=== PATIENT | male | born 1930 | race Caucasian/White ===

== ENCOUNTER 2017-06-06 09:39 | Emergency (ER) | payer OTHER ==
[~2017-06-06 09:39] MED LIST: ACYC1CAP16 PO; ALLOPOW4 PO; ANAG0.5C PO; CHOL100010 PO; CIPR1TAB50 PO; FLUC100T2 PO; LEVO125T3 PO; LEVO500T3 PO; VIT250TA PO
[2017-06-06] MEDS ORDERED: CHOL5000 PO (09:54)
[2017-06-06] MEDS ORDERED: [UNRECOGNIZED DRUG - CODE] (09:54)
[2017-06-06] MEDS ORDERED: LEVO125T4 PO (09:54)
[2017-06-06 09:56] VITALS: BP 105/57; PULSE 92; RESP 18; TEMP 98.4; O2SAT 95
[2017-06-06] MEDS ORDERED: SODIUM CHLOR 0.9% 1000 ML INJ 1,000 ML IV ONE (10:15)
--- NOTE | 2017-06-06 10:18 | PD ---
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 Since that time he's not been the same. He's had some generalized weakness and felt lightheaded. This morning it was worse. His checked his blood pressure and reportedly was in the 60s systolic. At this time his blood pressure is 105 systolic and he feels improved. Symptoms severity was moderate. No syncope or chest pain. No alleviating factors. He has not had any fever PFSH Past Medical History Cancer: Yes (NHL, LUNG CANCER; SQUAMOUS CELL RIGHT EAR) Chemotherapy: Yes Thyroid Disease: Yes Influenza Vaccination: No Past Surgical History Pacemaker: No Thoracic Surgery: Yes (PARTIAL LOBECTOMY RIGHT LOWER LOBE) Other Surgery: Yes Social History Alcohol Use: No Tobacco Use: No Substance Use: No Allergies-Medications (Allergen,Severity, Reaction): Coded Allergies: clarithromycin (Unverified Allergy, Intermediate, HYPERACTIVE, 06/06/17) Reported Meds & Prescriptions Reported Meds & Active Scripts Active Reported Vitamin D3 (Cholecalciferol) 5,000 Unit Cap 5,000 Units PO DAILY Erbitux Inj (Cetuximab) 100 Mg/50 Ml Inj Levothyroxine (Levothyroxine Sodium) 125 Mcg Tab 125 Mcg PO DAILY Review of Systems General / Constitutional: No: Fever Eyes: No: Visual changes HENT: Positive: Lightheadedness, No: Headaches Cardiovascular: No: Chest Pain or Discomfort Respiratory: No: Shortness of Breath Gastrointestinal: No: Abdominal Pain Genitourinary: No: Dysuria Musculoskeletal: Positive: Weakness, No: Pain Skin: No Rash Neurologic: Positive: Weakness, Dizziness Psychiatric: No: Depression Endocrine: No: Polydipsia Hematologic/Lymphatic: No: Easy Bruising Physical Exam Narrative GENERAL: Well-nourished, well-developed patient in no apparent distress. SKIN: Focused skin assessment reveals no rash and nodules. Skin is Warm and dry. HEAD: Atraumatic. Normocephalic. EYES: Pupils equal and round. No scleral icterus. No injection or drainage. ENT: No nasal bleeding or discharge. Mucous membranes pink and moist. Facial exam reveals that there is discoloration nodularity to the right side of the face where his cancer is. No surrounding erythema or warmth or fluctuance or active drainage NECK: Trachea midline. No JVD. CARDIOVASCULAR: Regular rate and rhythm. No murmur appreciated. RESPIRATORY: No accessory muscle use. Clear to auscultation. Breath sounds equal bilaterally. GASTROINTESTINAL: Abdomen soft, non-tender, nondistended. Hepatic and splenic margins not palpable. MUSCULOSKELETAL: No obvious deformities. No clubbing. No cyanosis. No edema. NEUROLOGICAL: Awake and alert. No obvious cranial nerve deficits. Motor grossly within normal limits. Normal speech. PSYCHIATRIC: Appropriate mood and affect; insight and judgment normal. Data Data Last Documented VS Vital Signs Date Time Temp Pulse Resp B/P (MAP) Pulse Ox O2 Delivery O2 Flow Rate FiO2 06/06/17 11:09 80 16 123/62 (82) 95 Room Air 06/06/17 09:56 98.4 Orders Orders Iv Access Insert/Monitor (06/06/17 10:14) Sodium Chlor 0.9% 1000 Ml Inj (Ns 1000 M (06/06/17 10:15) Complete Blood Count With Diff (06/06/17 10:14) Basic Metabolic Panel (Bmp) (06/06/17 10:14) Labs Laboratory Tests Test 06/06/17 10:30 White Blood Count 16.3 TH/MM3 Red Blood Count 2.91 MIL/MM3 Hemoglobin 9.1 GM/DL Hematocrit 27.4 % Mean Corpuscular Volume 94.3 FL Mean Corpuscular Hemoglobin 31.2 PG Mean Corpuscular Hemoglobin Concent 33.1 % Red Cell Distribution Width 20.4 % Platelet Count 465 TH/MM3 Mean Platelet Volume 7.0 FL Neutrophils (%) (Auto) 73.9 % Lymphocytes (%) (Auto) 10.3 % Monocytes (%) (Auto) 12.6 % Eosinophils (%) (Auto) 1.1 % Basophils (%) (Auto) 2.1 % Neutrophils # (Auto) 12.0 TH/MM3 Lymphocytes # (Auto) 1.7 TH/MM3 Monocytes # (Auto) 2.1 TH/MM3 Eosinophils # (Auto) 0.2 TH/MM3 Basophils # (Auto) 0.3 TH/MM3 CBC Comment AUTO DIFF Differential Total Cells Counted 100 Neutrophils % (Manual) 45 % Band Neutrophils % 14 % Lymphocytes % 11 % Monocytes % 11 % Basophils % 2 % Neutrophils # (Manual) 12.4 TH/MM3 Metamyelocytes 9 % Myelocytes 7 % Promyelocytes 1 % Nucleated Red Blood Cells 4 /100 WBC Differential Comment FINAL DIFF MANUAL Platelet Estimate NORMAL Platelet Morphology Comment NORMAL Ovalocytes 1+ Keratocytes OCC Blood Urea Nitrogen 17 MG/DL Creatinine 0.89 MG/DL Random Glucose 95 MG/DL Calcium Level 7.7 MG/DL Sodium Level 137 MEQ/L Potassium Level 3.7 MEQ/L Chloride Level 102 MEQ/L Carbon Dioxide Level 26.5 MEQ/L Anion Gap 9 MEQ/L Estimat Glomerular Filtration Rate 81 ML/MIN MDM Medical Decision Making Medical Screen Exam Complete: Yes Emergency Medical Condition: Yes Medical Record Reviewed: Yes Differential Diagnosis Dehydration, chemotherapy side effect, vasovagal episode, orthostatic hypotension Narrative Course I have reviewed the patient's electronic medical record. His oncologist note from 6 weeks ago detailing his complicated history of multiple cancers Patient is currently getting chemotherapy. IV placed I gave him 1 L normal saline IV Initial heart rate is 90 and blood pressure 105 systolic CBC shows some nonspecific leukocytosis and anemia Metabolic profile is normal After hydration blood pressure is 125 systolic and he is feeling much better Stable for outpatient follow-up Diagnosis Primary Impression: Hypotension arterial Qualified Codes: I95.9 - Hypotension, unspecified Additional Impression: Lightheadedness Additional Instructions: The patient was advised to follow up with their physician and return if they worsen. Med/Other Pt SpecificInfo: Other Disposition: 01 DISCHARGE HOME Condition: Stable Gordo Mason MD Jun 06, 2017 10:18
[2017-06-06 10:39] LABS: BASOPHIL # 0.3 TH/MM3 (0-0.2); BASOPHIL % 2.1 % (0.0-2.0); EOSINOPHIL # 0.2 TH/MM3 (0-0.4); EOSINOPHIL % 1.1 % (0.0-4.0); HEMATOCRIT 27.4 % (39.0-51.0); LYMPH % 10.3 % (9.0-44.0); LYMPHOCYTE # 1.7 TH/MM3 (1.0-4.8); MEAN CELL VOLUME 94.3 FL (80.0-100.0); MEAN CORPUSCULAR HEMOGLOBIN 31.2 PG (27.0-34.0); MEAN CORPUSCULAR HGB CONC 33.1 % (32.0-36.0); MONO % 12.6 % (0.0-8.0); NEUT % 73.9 % (16.0-70.0); PLATELET COUNT 465 TH/MM3 (150-450); RED BLOOD COUNT 2.91 MIL/MM3 (4.50-5.90); RED CELL DISTRIBUTION WIDTH 20.4 % (11.6-17.2); WHITE BLOOD COUNT 16.3 TH/MM3 (4.0-11.0)
[2017-06-06 10:41] LABS: HEMO FLAGS AUTO DIFF
[2017-06-06 10:47] LABS: POTASSIUM 3.7 MEQ/L (3.5-5.1)
[2017-06-06 10:50] LABS: BICARBONATE 26.5 MEQ/L (21.0-32.0)
[2017-06-06 11:07] LABS: BANDS 14 % (0-6); BASOPHILS 2 % (0-2); CORRECTED NUCLEATED RBC 4 /100 WBC (0-0); METAMYELOCYTES 9 % (0-1); MYELOCYTES 7 % (0-0); NEUTROPHIL # MANUAL DIFF 12.4 TH/MM3 (1.8-7.7); POLYS (SEG NEUTROPHILS) 45 % (16-70); PROMYELOCYTES 1 % (0-0); WBC DIFF SAMPLE 100
[2017-06-06 11:08] LABS: KERATOCYTES OCC (NORMAL); OVALOCYTES 1+ (NORMAL); PLATELET ESTIMATE SMEAR NORMAL (NORMAL); PLATELET MORPHOLOGY NORMAL (NORMAL); SCAN/DIFF FINAL DIFF MANUAL
[2017-06-06 11:09] VITALS: BP 123/62; PULSE 80; RESP 16; O2SAT 95
[2017-06-06 11:42] VITALS: BP 138/71; PULSE 80; RESP 16; O2SAT 96
== END 2017-06-06 12:01 | disposition home or self-care (01) ==
LOC: PHED 09:39
DX: I95.9 Hypotension, unspecified (principal); R42 Dizziness and giddiness; Z85.118 Personal history of other malignant neoplasm of bronchus and lung; Z85.72 Personal history of non-Hodgkin lymphomas
CPT/HCPCS: 80048; 85007; 85027; 96360; 99284; J1642; J7030